=== PATIENT | female | born 1990 | race Hispanic/Latino ===

== ENCOUNTER → 2025-03-02 | Day surgery (SDC) | payer BC ==
[2025-02-28 15:27] LABS: BASOPHILS % 1.1 % (0.0-1.0); EOSINOPHILS % 1.1 % (0.0-6.0); LYMPHOCYTES % 37.3 % (18.0-39.1); MONOCYTES % 6.4 % (4.4-11.3); NEUTROPHILS % 54.0 % (38.7-80.0); RED CELL DISTRIBUTION WIDTH 12.8 % (11.7-14.4)
[2025-02-28 15:40] LABS: LEUKOCYTE ESTERASE ,URINE TRACE (NEGATIVE); PROTEIN,URINE DIPSTICK NEGATIVE (NEGATIVE); URINE UROBILINOGEN 0.2 mg/dL (0.2 - 1)
[2025-02-28 15:53] LABS: EST GLOMERULAR FILTRATION RATE 104.0 ML/MIN (>=60)
[~2025-03-02] MED LIST: ACETAMINOPHEN 1000 MG/100 ML 100 ML IV ONE; CIPRO250 MG PO; DEXAMETHASONE SOD PHOS INJ 4 MG/ML SDV ONE; FENTANYL CITRATE/PF 100MCG/2 ML INJ ONE; LIDOCAINE HCL 2% LOCAL INJ 5 ML SDV VIAL INJ ONE; METRONIDAZOLE250 MG PO; ONDANSETRON HCL INJ 2MG/ML 2ML 2 MG/ML VIAL ONE; PHENTERMINE HCL30 MG PO; PROPOFOL IV EMULSION 10 MG/ML 20 ML VIAL ONE; ROCURONIUM BROMIDE 1 ML IV ONE; SEVOFLURANE INHAL SOLN 250 ML PEN BTL ONE; SUCCINYLCHOLINE CHLORIDE 20 MG/ML 10ML VIAL ONE; SUGAMMADEX SODIUM 200 MG/2 ML VIAL IV ONE; TRAMADOL HCL100 MG
[2025-03-02] MEDS: HYDROCODONE/APAP 7.5MG-325MG 1 EA TAB ONE (11:13)
[2025-03-02 11:40] VITALS: BP 127/81; PULSE 60; RESP 18; O2SAT 100
== END | disposition home or self-care (01) ==
LOC: OR 06:44
PROVIDERS: ATTEND Surgery
DX: K80.10 Calculus of gallbladder with chronic cholecystitis without obstruction (principal); Z79.2 Long term (current) use of antibiotics; Z01.812 Encounter for preprocedural laboratory examination
CPT/HCPCS: 36415; 47562; 80053; 81003; 81025; 85025; 88304; C1766; J0131; J0330; J1100; J2003; J2405; J2704; J3010